=== PATIENT | male | born 1990 | race Caucasian/White ===

== ENCOUNTER 2017-10-08 16:17 | Emergency (ER) | payer BC ==
[2017-10-08 16:44] VITALS: BP 152/87
--- NOTE | 2017-10-08 17:13 | UC ---
Throat Pain/Nasal Keshawn HPI - HPI Summary HPI Summary: pt c/o nasal congestion, cough and sinus pressure X 1 week. pt also has concern for STD exposure. Pt's was told by previous partner tested positive for gonorrhea. Denies dysuria, or penile discharge. - History of Current Complaint Chief Complaint: UCRespiratory Stated Complaint: CONGESTION HEADACHE FATIGUE Time Seen by Provider: 10/08/17 16:32 Hx Obtained From: Patient Onset/Duration: Gradual Onset, Lasting Days, Still Present, Worse Since - onset Severity: Mild Cough: Nonproductive Associated Signs & Symptoms: Positive: Sinus Discomfort - Epiglottits Risk Factors Epiglottis Risk Factors: Negative - Allergies/Home Medications Allergies/Adverse Reactions: Allergies Allergy/AdvReac Type Severity Reaction Status Date / Time Codeine Allergy Rash Verified 10/08/17 16:34 Penicillins Allergy Rash Verified 10/08/17 16:34 Home Medications: Home Medications amLODIPine TAB* [Norvasc 5 mg TAB*] 1 tab DAILY 10/08/17 [History Confirmed 05/18] PMH/Surg Hx/FS Hx/Imm Hx Previously Healthy: No Cardiovascular History: Hypertension - Surgical History Surgical History: None - Family History Known Family History: Positive: Cardiac Disease - Social History Occupation: Employed Full-time Lives: With Family Alcohol Use: Occasionally Substance Use Type: None Smoking Status (MU): Never Smoked Tobacco Have You Smoked in the Last Year: No - Immunization History Most Recent Influenza Vaccination: no Vaccination Up to Date: No Review of Systems Constitutional: Fatigue Skin: Negative Eyes: Negative ENT: Sinus Congestion, Sinus Pain/Tenderness Respiratory: Cough Cardiovascular: Negative Gastrointestinal: Negative Genitourinary: Negative Motor: Negative Neurovascular: Negative Musculoskeletal: Negative Neurological: Negative Psychological: Negative Is Patient Immunocompromised?: No All Other Systems Reviewed And Are Negative: Yes Physical Exam Triage Information Reviewed: Yes Appearance: Well-Appearing Vital Signs: Initial Vital Signs Temp 98.9 F 10/08/17 16:35 Pulse 90 10/08/17 16:35 Resp 16 10/08/17 16:35 BP 152/87 10/08/17 16:35 Pulse Ox 100 10/08/17 16:35 Vital Signs Reviewed: Yes Eye Exam: Normal ENT Exam: Other ENT: Positive: Nasal congestion, Sinus tenderness Dental Exam: Normal Neck exam: Normal Respiratory Exam: Normal Cardiovascular Exam: Other - irregular rhythm, pt states that he had EKG in March 2017. sees automotive parts counter person regularly and denies chest pain Abdominal Exam: Normal Musculoskeletal Exam: Normal Neurological Exam: Normal Psychological Exam: Normal Skin Exam: Normal Throat Pain/Nasal Course/Dx - Differential Dx/Diagnosis Differential Diagnosis/HQI/PQRI: Sinusitis, Other - STD exposure, elevated blood pressure Provider Diagnoses: Sinusitis. elevated blood pressure. STD exposure. Regular , Irregular rhythm Discharge - Discharge Plan Condition: Stable Disposition: HOME Prescriptions: DOXYcycline CAP(*) [DOXYcycline 100MG CAP(*)] 100 mg PO Q12H #14 cap Patient Education Materials: Sexually Transmitted Diseases (ED), Sinusitis (ED) , Hypertension (ED) Referrals: Manish Mays DO [Doctor of Osteopathy] - If Needed No Primary Care Phys,NOPCP [Primary Care Provider] - If Needed Additional Instructions: Please follow up with your PCP as needed. Please note that your blood pressure was elevated at today's visit. Please follow up with your automotive parts counter person regarding today's finding. Please call the urgent care in one week if you have not heard from us before that.
== END 2017-10-08 17:18 | disposition home or self-care (01) ==
LOC: UCCORT 16:17
DX: J32.9 Chronic sinusitis, unspecified (principal); R53.83 Other fatigue; Z20.2 Contact with and (suspected) exposure to infections with a predominantly sexual mode of transmission; I49.9 Cardiac arrhythmia, unspecified; I10 Essential (primary) hypertension; Z88.5 Allergy status to narcotic agent; Z88.0 Allergy status to penicillin
CPT/HCPCS: 87491; 87591; 99202; G0463

== ENCOUNTER 2018-10-07 17:02 | Emergency (ER) | payer BC ==
--- OUTSIDE RECORDS SUMMARY | 2018-10-07 17:15 | XMS REPORT | Continuity of Care Document ---
:1990 Author Organization [facility] Support Name Relationship Address Phone ALVIN MENDOZA [address] [place] [address] [place] [address] ALVIN MENDOZA mother [address] [place] [address] [place] [address] Allergies and Intolerances Code Code System Allergy Type Reaction Severity Start End Date Status Substance Date 2670 RXNorm Codeine Drug Mild Active allergy 6 (disorder) 54856 RXNorm penicillin Drug Mild Active allergy 6 (disorder) Medications RxNorm Medication Dose Route Instructions Start Date End Date Status 96001 Loratadine 10 mg oral orally every day as needed. Active 05260 valsartan 160 mg oral orally every day Active Problems Code Code System Problem Name Start Date End Date Status 76867401 SNOMED-CT Essential hypertension U Active Procedures No data in the system Results Radiology Results Order: SPINE LUMBAR PARTIALExam Completion Date:09/04/2018 23:3512 12:09 AM SPINE LUMBAR PARTIAL ORDERING CLINICAL INFORMATION: LOW BACK PAIN,Injury.2 view, AP, LAT #1 -- LOW BACK PAIN ADDITIONAL CLINICAL INFORMATION: None. COMPARISON: None. TECHNIQUE: AP and lateral views of the lumbar spine. Spot lateral view of the lumbosacral junction. IMPRESSION AND FINDINGS: Vertebral bodies are grossly maintained in height. No fractures or osseous destructive lesions are identified. Vertebral body alignment appears within normal limits without evidence of significant subluxation. Intervertebral disc height appears grossly maintained. Regional soft tissues and incidentally visualized portions of the sacrum and pelvis appear grossly intact and unremarkable. [facility] submits Rad[facility] and [facility] then provides those same results to [facility]. All results are available to [facility] and [facility] provider portal users. [facility] DICOM images are available to the [facility] provider portal users only. [facility] DICOM images are not available to the [facility] provider portal users. There is no current [facility] cross-RHIO functionality allowing images to be available through the [facility] to RHIO connectivity. Electronically signed By: Robert Cornell M.D. Read By: ROBERT CORNELL Date: 09/05/2018 01:00 Social History Code Code System Social History Observation Description Dates Observed 636807527 SNOMED CT Current Smoking Status Never smoker UNK AdministrativeGender Sex Assigned At Unknown Vital Signs Code Code System Vitals Value Date 8310-5 LOINC Body Temperature 97.8 [degF] 09/04/2018 8865-8 LOINC Pulse Rate 91 {beats}/min 09/04/2018 9279-1 LOINC Respiratory Rate 16 /min 09/04/2018 17580-7 LOINC O2% BldC Oximetry 98 % 09/04/2018 8480-6 LOINC BP Systolic 162 mm[Hg] 09/04/2018 8462-4 LOINC BP Diastolic 103 mm[Hg] 09/04/2018 8302-2 LOINC Height 72 [in_i] 09/04/2018 13268-5 LOINC Weight 92 kg 09/04/2018 3140-1 LOINC Body surface area Derived from formula 2.14 m2 09/04/2018 49525-8 LOINC BMI (Body Mass Index) 27.7 kg/m2 09/04/2018 Goals Section No data in the system Health Concerns No data in the systemEncounter Diagnosis Date Code Code System Diagnosis Status S39.012A ICD10 STRAIN MUSC FASC TENDON LW BACK INT Active Advance Directives HEALTH CARE PROXY Directive Type Effective Date Zanjero Notes Supporting Document Name Address Phone No Directive 01/24/2018 Not Specified Not Specified Not Specified Francheska Mendoza No Type specified 12:34:00 PM TEL: [phone] PT STATES NO ADVANCE DIRECTIVES Directive Type Effective Date Zanjero Notes Supporting Document Name Address Phone No Directive Type 02/01/2016 11:17:39 Not Specified Not Specified Not Specified None No specified AM Family History No data in the system Functional Status Code Functional Condition Code System Date Status Independent adls SNOMED CT 09/04/2018 Active Appears well nourished/hydrated SNOMED CT 09/04/2018 Active Immunizations No data in the system Medical Equipment No data in the system Mental Status Code Cognitive Condition Code System Date Status Mild distress SNOMED CT 09/04/2018 Active Oriented x [address] 09/04/[address] 09/04/2018 Active Assessment and Plan Assessments No data in the systemPlan Of Treatment No data in the systemPending Tests No data in the system Hospital Discharge Instructions No data in the system Reason for Visit Reason for Visit Lower Back Pain
[2018-10-07 17:38] VITALS: BP 138/78
--- NOTE | 2018-10-07 18:31 | UC ---
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 Pt states was diagnosis with sinusitis. Pt was Rx doxy. Pt states starting yesterday felt much worse. Fever, rigors, cough. Pt states he has body aches, nausea No rash Pt with similar sick contact as work. Pt states 'everything aches" Pt's medications reviewed this visit not immunocompromised - History of Current Complaint Chief Complaint: UCGeneralIllness Stated Complaint: SINUS CONCERN Time Seen by Provider: 10/07/18 18:24 Hx Obtained From: Patient Pain Intensity: 8 - Allergies/Home Medications Allergies/Adverse Reactions: Allergies Allergy/AdvReac Type Severity Reaction Status Date / Time codeine Allergy Rash Verified 10/07/18 17:29 Penicillins Allergy Rash Verified 10/07/18 17:29 Home Medications: Home Medications Amlodipine Besylate [Norvasc] 10 mg PO DAILY 10/07/18 [History Confirmed ] PMH/Surg Hx/FS Hx/Imm Hx Previously Healthy: Yes - Surgical History Surgical History: Yes Surgery Procedure, Year, and Place: adenoidectomy - Family History Known Family History: Positive: Cardiac Disease, Non-Contributory - Social History Occupation: Employed Full-time Lives: With Family Alcohol Use: Occasionally Substance Use Type: None Smoking Status (MU): Never Smoked Tobacco Have You Smoked in the Last Year: No - Immunization History Most Recent Influenza Vaccination: no Vaccination Up to Date: No Review of Systems All Other Systems Reviewed And Are Negative: Yes Constitutional: Positive: Fever, Chills, Fatigue ENT: Positive: Sore Throat, Sinus Congestion Respiratory: Positive: Cough Cardiovascular: Positive: Negative Musculoskeletal: Positive: Myalgia Physical Exam - Summary Physical Exam Summary: Vital Signs Reviewed: Yes A+Ox3, no distress, tired appearing Eyes: Conjunctiva Clear, NIC. EOM intact and full ENT: Hearing grossly normal TM x 2 clear, turbinates inflammed, + PND mmoist, uvula midline, no exudate, no erythema Neck: Positive: Supple Respiratory: Positive: No respiratory distress, No accessory muscle use + coarse cough, scattered wheeze Cardiovascular: RRR nl s1, s2 no m/r CBT <2 sec abd soft + BS nt/nd no guarding, no distension Musculoskeletal Exam: SOLOMON x 4 without difficulty Strength Intact, ROM Intact Neurological: Positive: Alert, + sensation throughout Psychological: Positive: Normal Response To Family Skin: Positive: no rash, no ecchymosis Triage Information Reviewed: Yes Vital Signs: Initial Vital Signs Temp 99.5 F 10/07/18 17:32 Pulse 105 10/07/18 17:32 Resp 22 10/07/18 17:32 BP 138/78 10/07/18 17:32 Pulse Ox 97 10/07/18 17:32 Diagnostics - Radiology No standard instances Radiology Interpretation Completed By: ED Physician - LLL infiltrate Re-Evaluation - Re-Evaluation First Eval Change: Improved - Pt improved following neb reviewed CXR complete Doxy will give spacer tamiflu hydrate secretion percaution work note hydrate motrin/apap Throat Pain/Nasal Course/Dx - Course Assessment/Plan: Pt on Day #6 doxy for sinusitis. Pt has albuteril no MDI Pt states yesterday developed body aches, rigors, cough and myalgias. On exam, pt with fever. tored appearing but appropriate. cough and wheeze. Will check cxr , neb. reassess - Differential Dx/Diagnosis Provider Diagnosis: Cough, Influenza, LLL pneumonia Discharge - Sign-Out/Discharge Documenting (check all that apply): Patient Departure All imaging exams completed and their final reports reviewed: No - Discharge Plan Condition: Stable Disposition: HOME Prescriptions: Albuterol HFA INHALER* [Ventolin HFA Inhaler*] 1 puff INH Q4H PRN #1 mdi PRN Reason: wheeze DOXYcycline CAP(*) [DOXYcycline 100MG CAP(*)] 100 mg PO BID #6 cap Oseltamivir CAP* [Tamiflu CAP*] 75 mg PO BID #10 cap Oseltamivir SUSP 75 MG dose* [Tamiflu SUSP 75 MG dose*] 75 mg PO BID #10 oral.syrin predniSONE TAB* [Deltasone 20 MG TAB*] 20 mg PO DAILY #11 tab Patient Education Materials: Influenza (ED) Forms: *Gen. Provider Communication, *Work Release Referrals: [facility] [place] PH[facility]ICIAN REFERRAL [Outside] No Primary Care Phys,NOPCP [Primary Care Provider] - Additional Instructions: - Stay well hydrated. Drink plenty of non-alcoholic, non-caffinated beverages. - Alternate ibuprofen (Advil, Motrin) 600mg and Tylenol (acetaminophen) 1000mg every 3 hours for pain or fever. Take with food. Do NOT take for more than 4-5 days. - These infections are spread by secretions - do NOT share eating or drinking utensils - clean items you share with other people such as cell phones, computer mouse, TV remote, computer tablets,etc. Once you start to feel better, change your toothbrush and your pillowcase. - get plenty of restful sleep - humidify the air in the room where you sleep - boil water, run a hot steam shower, vaporizer, cups of water by heat register - okay to take over the counter decongestant and cough medication - The doctor that reviewed your chest radiograph is concerned about mild pneumonia - you have taken 7 days of the correct antibiotic - you have been given a prescription for 3 more days to complete the theraputic course. The radiologist will read your xray tomorrow. If there is a change to your radiology read you will receive a call from a care produce team lead - Take Tamiflu as prescribed until gone -Use your inhaler - 2 puffs every 4 hours and Sunday then every 4 hours as needed - use your aerochamber as given to you here today - Take prednisone exactly as prescribed until gone - contact your doctor or return with questions or concerns - Billing Disposition and Condition Condition: STABLE Disposition: Home
[2018-10-07] MEDS ORDERED: Acetaminophen TAB* 325 MG PO ONE (18:37)
[2018-10-07] MEDS ORDERED: Albuterol/Ipratropium NEB.SOL* Albuterol 2.5 MG/Ipratropium 0.5 MG 3 ML INH ONE (18:37)
--- NOTE | 2018-10-08 08:13 | UC ---
- Progress Note Progress Note: chest xray report : IMPRESSION: SMALL LEFT PERIHILAR INFILTRATE. Course/Dx - Diagnoses Provider Diagnoses: Cough Discharge - Sign-Out/Discharge Documenting (check all that apply): Patient Departure All imaging exams completed and their final reports reviewed: Yes - Discharge Plan Condition: Stable Disposition: HOME Prescriptions: Albuterol HFA INHALER* [Ventolin HFA Inhaler*] 1 puff INH Q4H PRN #1 mdi PRN Reason: wheeze DOXYcycline CAP(*) [DOXYcycline 100MG CAP(*)] 100 mg PO BID #6 cap Oseltamivir CAP* [Tamiflu CAP*] 75 mg PO BID #10 cap Oseltamivir SUSP 75 MG dose* [Tamiflu SUSP 75 MG dose*] 75 mg PO BID #10 oral.syrin predniSONE TAB* [Deltasone 20 MG TAB*] 20 mg PO DAILY #11 tab Patient Education Materials: Influenza (ED) Forms: *Gen. Provider Communication, *Work Release Referrals: [facility] [place] [facility] REFERRAL [Outside] No Primary Care Phys,NOPCP [Primary Care Provider] - Additional Instructions: - Stay well hydrated. Drink plenty of non-alcoholic, non-caffinated beverages. - Alternate ibuprofen (Advil, Motrin) 600mg and Tylenol (acetaminophen) 1000mg every 3 hours for pain or fever. Take with food. Do NOT take for more than 4-5 days. - These infections are spread by secretions - do NOT share eating or drinking utensils - clean items you share with other people such as cell phones, computer mouse, TV remote, computer tablets,etc. Once you start to feel better, change your toothbrush and your pillowcase. - get plenty of restful sleep - humidify the air in the room where you sleep - boil water, run a hot steam shower, vaporizer, cups of water by heat register - okay to take over the counter decongestant and cough medication - The doctor that reviewed your chest radiograph is concerned about mild pneumonia - you have taken 7 days of the correct antibiotic - you have been given a prescription for 3 more days to complete the theraputic course. The radiologist will read your xray tomorrow. If there is a change to your radiology read you will receive a call from a care retail team leader - Take Tamiflu as prescribed until gone -Use your inhaler - 2 puffs every 4 hours and Sunday then every 4 hours as needed - use your aerochamber as given to you here today - Take prednisone exactly as prescribed until gone - contact your doctor or return with questions or concerns - Billing Disposition and Condition Condition: STABLE Disposition: Home
== END 2018-10-07 19:33 | disposition home or self-care (01) ==
LOC: UCCORT 17:02
DX: J11.00 Influenza due to unidentified influenza virus with unspecified type of pneumonia (principal); J32.9 Chronic sinusitis, unspecified; Z88.5 Allergy status to narcotic agent; Z88.0 Allergy status to penicillin
CPT/HCPCS: 71046; 99212; A9270-GY; G0463

== ENCOUNTER 2018-10-16 16:01 | Emergency (ER) | payer BC ==
[2018-10-16 16:24] VITALS: BP 157/89
--- NOTE | 2018-10-16 16:40 | UC ---
Throat Pain/Nasal Keshawn HPI - HPI Summary HPI Summary: 28-year-old male comes in with a chief complaint of rhinorrhea and sinus pressure. Patient started feeling ill 3 weeks ago. He is allergic to penicillins and was started on doxycycline. He continued to get more ill and was then diagnosed with influenza and started on Tamiflu. Also having a lot of wheezing and his been using an albuterol inhaler and was also prescribed prednisone. The breathing is greatly improved. He continues to use the albuterol inhaler as needed but does not needed as much. The albuterol does help with the wheezing. The rhinorrhea during the course of the illness improved. As soon as he stopped the antibiotic it's gotten worse again. He does use saline nasal spray which helps with the rhinorrhea. - History of Current Complaint Chief Complaint: UCGeneralIllness Stated Complaint: SINUS COMPLAINT Time Seen by Provider: 10/16/18 16:16 Pain Intensity: 0 - Allergies/Home Medications Allergies/Adverse Reactions: Allergies Allergy/AdvReac Type Severity Reaction Status Date / Time codeine Allergy Rash Verified 10/07/18 17:29 Penicillins Allergy Rash Verified 10/07/18 17:29 Home Medications: Home Medications Aspirin 325 mg PO ONCE 10/16/18 [History Confirmed 10/16/18] PMH/Surg Hx/FS Hx/Imm Hx Previously Healthy: Yes Respiratory History: Asthma - Surgical History Surgical History: Yes Surgery Procedure, Year, and Place: adenoidectomy - Family History Known Family History: Positive: Cardiac Disease, Non-Contributory - Social History Alcohol Use: Rare Substance Use Type: None Smoking Status (MU): Never Smoked Tobacco Have You Smoked in the Last Year: No - Immunization History Most Recent Influenza Vaccination: no Vaccination Up to Date: No Review of Systems All Other Systems Reviewed And Are Negative: Yes Constitutional: Positive: Negative Skin: Positive: Negative Eyes: Positive: Negative ENT: Positive: Sore Throat, Nasal Discharge, Sinus Congestion, Sinus Pain/ Tenderness Respiratory: Positive: Other - WHEEZING Cardiovascular: Positive: Negative Gastrointestinal: Positive: Negative Motor: Positive: Negative Neurovascular: Positive: Negative Musculoskeletal: Positive: Negative Neurological: Positive: Negative Psychological: Positive: Negative Is Patient Immunocompromised?: No Physical Exam Triage Information Reviewed: Yes Appearance: No Pain Distress, Well-Nourished, Ill-Appearing - MILD Vital Signs: Initial Vital Signs Temp 98.5 F 10/16/18 16:20 Pulse 98 10/16/18 16:20 Resp 18 10/16/18 16:20 BP 157/89 10/16/18 16:20 Pulse Ox 100 10/16/18 16:20 Vital Signs Reviewed: Yes Eye Exam: Normal Eyes: Positive: Conjunctiva Clear ENT: Positive: Pharyngeal erythema, Nasal congestion, Nasal drainage, TMs normal Neck exam: Normal Neck: Positive: Supple Respiratory: Positive: Lungs clear, Normal breath sounds, No respiratory distress Cardiovascular: Positive: RRR Musculoskeletal Exam: Normal Musculoskeletal: Positive: Strength Intact, ROM Intact Neurological Exam: Normal Neurological: Positive: Alert, Muscle Tone Normal Psychological Exam: Normal Psychological: Positive: Age Appropriate Behavior Skin Exam: Normal Throat Pain/Nasal Course/Dx - Course Course Of Treatment: With the patient's allergy to penicillin with the patient' s allergy to penicillin we'll retreat with a 10 day course of doxycycline he is to continue symptomatic treatment. Follow-up with primary care doctor or return here if worse or not improving. - Differential Dx/Diagnosis Provider Diagnosis: Sinusitis, Bronchospasm Discharge - Sign-Out/Discharge Documenting (check all that apply): Patient Departure All imaging exams completed and their final reports reviewed: No Studies - Discharge Plan Condition: Stable Disposition: HOME Prescriptions: Albuterol HFA INHALER* [Ventolin HFA Inhaler*] 1 puff INH Q4H PRN #1 mdi PRN Reason: Wheezing DOXYcycline CAP(*) [DOXYcycline 100MG CAP(*)] 100 mg PO BID #20 cap Patient Education Materials: Sinusitis (ED), Bronchospasm (ED) Referrals: [facility] [place] [facility]IAN REFERRAL [Outside] Additional Instructions: FOLLOW UP WITH YOUR DOCTOR IF NOT COMPLETELY IMPROVED. GET RECHECKED FOR ANY WORSENING OF YOUR CONDITION OR QUESTIONS OR CONCERNS. - Billing Disposition and Condition Condition: STABLE Disposition: Home
== END 2018-10-16 16:52 | disposition home or self-care (01) ==
LOC: UCCORT 16:01
DX: J32.9 Chronic sinusitis, unspecified (principal); J98.01 Acute bronchospasm; Z88.0 Allergy status to penicillin; Z88.5 Allergy status to narcotic agent
CPT/HCPCS: 99212; G0463

== ENCOUNTER 2018-12-23 12:42 | Emergency (ER) | payer BC ==
--- OUTSIDE RECORDS SUMMARY | 2018-12-23 12:51 | XMS REPORT | Continuity of Care Document ---
:1990 External Reference #:[id number] Author Name Gloria Pimentel C Care Team Providers Name Role Phone ALESSANDRO Woodard Vijaya Care Team Information Notch Grinder Unavailable ALESSANDRO Woodard Vijaya Primary Care Physician Unavailable Payers Date Identification Numbers Payment Provider Subscriber Policy Number: [id number] [facility] Plan Blue Mendoza PayID: [id number] [address] [place] [address] Advance Directives Description No Information Available Problems Date Description Provider Status Onset: 09/21/2016 Generalized anxiety disorder Manish Mays DO Active Onset: 02/16/2016 Essential hypertension Manish Mays DO Active Family History Date Family Member(s) Observation Comments Father Non Contributory Mother Non Contributory Paternal Grandmother Hypertension Paternal Grandmother Stroke Maternal Grandmother Hypertension Social History Type Date Description Comments Sex Unknown Marital Status Single Lives With Alone Occupation Game Programer ETOH Use Occasionally consumes alcohol Tobacco Use Start: Unknown Patient has never smoked (cigarettes) Tobacco Use Start: Unknown Chewing tobacco Quit 02/02/16, Smokes a cigar 1-2x/month Smoking Status Reviewed: 11/29/18 Chewing tobacco Quit 02/02/16, Smokes a cigar 1-2x/month Exercise Exercises regularly walks, runs Type/Frequency Allergies, Adverse Reactions, Alerts Date Description Reaction Status Severity Comments 02/16/2016 Penicillin Active 02/16/2016 Codeine Active Medications Medication Date Status Form Strength Qnty SIG Indications Ordering Provider Norvasc 02/14/2018 Active Tablets 10mg 90tabs 1 by Trell mouth Charlamb, every MD day Claritin-D 12 Active Tablets ER 5-120mg prn Unknown Hour 12HR Valsartan 10/18/2017 Hx Tablets 160mg 30tabs 1 by I10 Davon, - pollo Cancino, 02/13/2018 every DO day Norvasc Hx Tablets 5mg 1 by Davon - pollo Cancino, 10/18/2017 every DO day Xanax Hx Tablets 0.25mg prn Unknown - Unknown Norvasc Hx Tablets 10mg 1 by Unknown - mouth 02/14/2018 every day Norvasc Hx Tablets 5mg 1 by Unknown - mouth 02/14/2018 every day Immunizations Description No Information Available Vital Signs Date Vital Result Comment 11/29/2018 9:16am BP Systolic Right Arm 132 mmHg BP Diastolic Right Arm 92 mmHg Heart Rate 80 /min Respiratory Rate 20 /min Weight 210.00 lb Height 72 inches 6'0" BMI (Body Mass Index) 28.5 kg/m2 05/10/2018 9:59am BP Systolic Left Arm 138 mmHg BP Diastolic Left Arm 76 mmHg Heart Rate 76 /min Respiratory Rate 12 /min Weight 190.00 lb Height 72 inches 6'0" BMI (Body Mass Index) 25.8 kg/m2 02/14/2018 1:33pm BP Systolic Left Arm 160 mmHg BP Diastolic Left Arm 100 mmHg Heart Rate 64 /min Respiratory Rate 16 /min Weight 190.00 lb Height 72 inches 6'0" BMI (Body Mass Index) 25.8 kg/m2 10/18/2017 3:37pm BP Systolic Left Arm 142 mmHg BP Diastolic Left Arm 90 mmHg Heart Rate 64 /min Respiratory Rate 16 /min Weight 195.00 lb Height 72 inches 6'0" BMI (Body Mass Index) 26.4 kg/m2 06/12/2017 8:47am BP Systolic Left Arm 140 mmHg BP Diastolic Left Arm 90 mmHg Heart Rate 69 /min Respiratory Rate 16 /min Weight 195.00 lb Height 72 inches 6'0" BP Systolic Recheck 132 mmHg BP Diastolic Recheck 84 mmHg BMI (Body Mass Index) 26.4 kg/m2 11/03/2016 2:02pm BP Systolic Left Arm 130 mmHg BP Diastolic Left Arm 84 mmHg Heart Rate 84 /min Respiratory Rate 16 /min Weight 185.00 lb Height 72 inches 6'0" BMI (Body Mass Index) 25.1 kg/m2 09/21/2016 2:20pm BP Systolic Left Arm 140 mmHg BP Diastolic Left Arm 86 mmHg Heart Rate 72 /min Respiratory Rate 16 /min Weight 185.00 lb Height 72 inches 6'0" BMI (Body Mass Index) 25.1 kg/m2 08/18/2016 1:31pm BP Systolic Right Arm 142 mmHg BP Diastolic Right Arm 92 mmHg Heart Rate 107 /min Respiratory Rate 18 /min Weight 185.00 lb Height 72 inches 6'0" BMI (Body Mass Index) 25.1 kg/m2 02/16/2016 2:15pm BP Systolic Right Arm 120 mmHg BP Diastolic Right Arm 86 mmHg Heart Rate 72 /min Respiratory Rate 14 /min Weight 197.00 lb Height 72 inches 6'0" BMI (Body Mass Index) 26.7 kg/m2 Results Description No Information Available Procedures Date Code Description Status 05/10/2018 13308 Electrocardiogram Complete Completed 06/12/2017 93596 Electrocardiogram Complete Completed 08/18/2016 04678 Electrocardiogram Complete Completed 02/03/2016 79892 Stress Test Interpretation & Report Only Completed 02/03/2016 74224 Cardiovascular Stress Test - Tracing Only Completed 02/03/2016 03735 Stress Test - Physician Supervision Only Completed 02/03/2016 15331 Spect, Multiple Perfusion Study Completed 01/31/2016 72507 Echo, transthoracic, complete w/ Doppler and Color Flow Completed Encounters Type Date Location Provider Dx Diagnosis Office Visit 11/29/2018 [facility] Lorena Mays Essential ( primary) 8:40a Of Weinert-Selvin Cancino, DO hypertension Office Visit 05/10/2018 [facility]on I10 Essential ( primary) 10:00a Of Jeanna Cancino, DO hypertension Office Visit 02/14/2018 [facility] I10 Essential ( primary) 1:40p Of Weinert-Selvin Cancino, DO hypertension Office Visit 10/18/2017 [facility] I10 Essential ( primary) 3:40p Of Weinert-Selvin Cancino, DO hypertension Office Visit 06/12/2017 [facility] Erin Simons I10 Essential ( primary) 9:00a Of Weinert-Selvin Rojas RPA-Vishal hypertension Office Visit 11/03/2016 [facility] I10 Essential ( primary) 2:00p Of Weinert-Selvin Cancino, DO hypertension F41.1 Generalized anxiety disorder Office Visit 09/21/2016 [facility] Lorena Essential 1:40p Of Jeanna Cancino DO (primary) hypertension F41.1 Generalized anxiety disorder Office Visit 08/18/2016 [facility] Lorena Mays Essential 1:40p Of Jeanna Cancino DO (primary) hypertension Office Visit 02/16/2016 [facility]on, Lorena Essential 3:00p Of Corrine Cancino DO (primary) hypertension Plan of Treatment 11/29/2018 - Manish Mays, DOI10 Essential (primary) hypertensionFollow up :*follow up in 1 year
[2018-12-23 13:59] VITALS: BP 130/80
--- NOTE | 2018-12-23 14:58 | UC ---
General HPI - HPI Summary HPI Summary: PT C/O BOTH EYES BEING RED, BURNING AND HAVING A GREEN DISCHARGE THIS AM. + NASAL CONGESTION. NO CONTACT USE OF VISUAL DISTURBANCE. - History of Current Complaint Chief Complaint: UCEye Stated Complaint: LT EYE CONCERN Time Seen by Provider: 12/23/18 14:46 Hx Obtained From: Patient Onset/Duration: Gradual Onset Timing: Constant Pain Intensity: 7 Associated Signs & Symptoms: Negative: Fever, Headache - Allergy/Home Medications Allergies/Adverse Reactions: Allergies Allergy/AdvReac Type Severity Reaction Status Date / Time codeine Allergy Rash Verified 12/23/18 13:52 Penicillins Allergy Rash Verified 12/23/18 13:52 Home Medications: Home Medications Aspirin EC TAB* [Ecotrin EC TAB*] 325 mg PO DAILY 12/23/18 [History Confirmed ] PMH/Surg Hx/FS Hx/Imm Hx Previously Healthy: Yes - Surgical History Surgical History: Yes Surgery Procedure, Year, and Place: adenoidectomy - Family History Known Family History: Positive: Cardiac Disease, Non-Contributory - Social History Occupation: Disabled - [employer]PORARY[employer] Alcohol Use: Rare Substance Use Type: None Smoking Status (MU): Never Smoked Tobacco Have You Smoked in the Last Year: No - Immunization History Most Recent Influenza Vaccination: no Vaccination Up to Date: No Review of Systems All Other Systems Reviewed And Are Negative: Yes Eyes: Positive: Drainage, Eye Redness. Negative: Blurred Vision, Diplopia, Photophobia Physical Exam Triage Information Reviewed: Yes Appearance: Well-Appearing Vital Signs: Initial Vital Signs Temp 98.1 F 12/23/18 13:50 Pulse 80 12/23/18 13:50 Resp 18 12/23/18 13:50 BP 130/80 12/23/18 13:50 Pulse Ox 99 12/23/18 13:50 Vital Signs Reviewed: Yes Eyes: Positive: Other: - NO AURICULAR ADENOPATHY. NO PERIORBITAL EDEMA OR ERYTHEMA. CONJUNCTIVA INJECTED X2 WITH GREEN EXUDATE. PERRL, EOMI, AC'S CLEAR. LIDS EVERTED AND NO FB'S. ENT: Positive: Pharynx normal, TMs normal. Negative: Nasal congestion, Nasal drainage Neck: Positive: Supple, Nontender, No Lymphadenopathy Respiratory: Positive: Lungs clear, Normal breath sounds, No respiratory distress Cardiovascular: Positive: RRR, No Murmur Abdomen Description: Positive: Nontender Bowel Sounds: Positive: Present Musculoskeletal: Positive: ROM Intact, Other: - SPLINT RLE Neurological: Positive: Alert Psychological: Positive: Age Appropriate Behavior Skin Exam: Normal Course/Dx - Diagnoses Provider Diagnosis: Conjunctivitis Discharge - Sign-Out/Discharge Documenting (check all that apply): Patient Departure All imaging exams completed and their final reports reviewed: No Studies - Discharge Plan Condition: Stable Disposition: HOME Prescriptions: Erythromycin OPTH OINT* [Erythromycin 0.5% OPTH OINT*] 1 applic BOTH EYES TID 7 Days #1 ophth.oint Patient Education Materials: Conjunctivitis (ED) Referrals: No Primary Care Phys,NOPCP [Primary Care Provider] - DAVID Wolfe [Medical Doctor] - 5 Days - Billing Disposition and Condition Condition: STABLE Disposition: Home
== END 2018-12-23 15:14 | disposition home or self-care (01) ==
LOC: UCCORT 12:42
DX: H10.9 Unspecified conjunctivitis (principal); Z88.5 Allergy status to narcotic agent; Z88.0 Allergy status to penicillin; Z79.82 Long term (current) use of aspirin
CPT/HCPCS: 99212; G0463

== ENCOUNTER 2018-12-26 07:28 | Emergency (ER) | payer BC ==
[2018-12-26 07:57] VITALS: BP 142/83
--- NOTE | 2018-12-26 08:23 | ED ---
Throat Pain/Nasal Congestion - HPI Summary HPI Summary: 28 yr old male with the complaint of sore throat, and bilateral eye irritation. He has had ointment for eye, and they are getting better over the past few days, but he doesn't like putting ointment in his eyes. He wants drop. He has had a sore throat for just a day at this point. No runny nose. No NVD. No fever. No drooling. No other complaints. - History of Current Complaint Chief Complaint: UCGeneralIllness Time Seen by Provider: 12/26/18 07:52 - Allergies/Home Medications Allergies/Adverse Reactions: Allergies Allergy/AdvReac Type Severity Reaction Status Date / Time codeine Allergy Rash Verified 12/26/18 07:49 Penicillins Allergy Rash Verified 12/26/18 07:49 PMH/Surg Hx/FS Hx/Imm Hx Cardiovascular History: Reports: Hx Hypertension - Surgical History Surgery Procedure, Year, and Place: adenoidectomy Infectious Disease History: No Infectious Disease History: Denies: Traveled Outside the [place] in Last 30 Days - Family History Known Family History: Positive: Cardiac Disease, Non-Contributory - Social History Occupation: Employed Full-time Alcohol Use: Rare Substance Use Type: Reports: None Smoking Status (MU): Never Smoked Tobacco Have You Smoked in the Last Year: No Review of Systems Constitutional: Negative Positive: Drainage, Erythema Positive: Sore Throat All Other Systems Reviewed And Are Negative: Yes Physical Exam Triage Information Reviewed: Yes Vital Signs On Initial Exam: Initial Vitals Temp Pulse Resp BP Pulse Ox 98.1 F 83 18 142/83 99 12/26/18 07:55 12/26/18 07:55 12/26/18 07:55 12/26/18 07:55 12/26/18 07:55 Vital Signs Reviewed: Yes Appearance: Positive: Well-Appearing, No Pain Distress Skin: Positive: Warm, Skin Color Reflects Adequate Perfusion Head/Face: Positive: Normal Head/Face Inspection Eyes: Positive: EOMI, Conjunctiva Inflammed. Negative: Discharge ENT: Positive: Pharyngeal erythema, TMs normal. Negative: Nasal congestion, Nasal drainage Neck: Positive: Nontender Respiratory/Lung Sounds: Positive: Clear to Auscultation, Breath Sounds Present Cardiovascular: Positive: RRR. Negative: Murmur Abdomen Description: Positive: Nontender Musculoskeletal: Positive: Strength/ROM Intact Neurological: Positive: Sensory/Motor Intact, Alert, Oriented to Person Place, Time, CN Intact II-III Psychiatric: Positive: Normal Diagnostics - Vital Signs Vital Signs Temp Pulse Resp BP Pulse Ox 12/26/18 07:55 98.1 F 83 18 142/83 99 - Laboratory Lab Results: Lab Results 12/26/18 Range/Units 07:53 Group A Strep Rapid Negative (Negative) Lab Statement: Any lab studies that have been ordered have been reviewed, and results considered in the medical decision making process. EENT Course/Dx - Course Course Of Treatment: 28 yr old with URI, conjunctivitis. Rx sulfa. Rapid strep neg. - Diagnoses Provider Diagnoses: Conjunctivitis, Pharyngitis, Hypertension Discharge - Sign-Out/Discharge Documenting (check all that apply): Patient Departure All imaging exams completed and their final reports reviewed: No Studies - Discharge Plan Condition: Good Disposition: HOME Prescriptions: Sulfacetamide 10 % OPTH.BOLA* [Sulamyd 10% Opth*] 1 drop BOTH EYES Q4H #1 btl Patient Education Materials: Hypertension (ED), Conjunctivitis (ED) Referrals: [facility] [Outside] - 2 Days No Primary Care Phys,NOPCP [Primary Care Provider] - - Billing Disposition and Condition Condition: GOOD Disposition: Home
== END 2018-12-26 08:20 | disposition home or self-care (01) ==
LOC: UCCORT 07:28
DX: J02.9 Acute pharyngitis, unspecified (principal); H10.9 Unspecified conjunctivitis; I10 Essential (primary) hypertension; Z88.5 Allergy status to narcotic agent; Z88.0 Allergy status to penicillin
CPT/HCPCS: 87651; 99212; G0463

== ENCOUNTER 2019-12-11 14:57 | Emergency (ER) | payer BC, OTHER ==
[2019-12-11 15:14] VITALS: BP 149/82
--- OUTSIDE RECORDS SUMMARY | 2019-12-11 15:35 | XMS REPORT | Continuity of Care Document ---
:1990 External Reference #:[id number] Author Name Kings Porter MD Address [address] [place] [address] Care Team Providers Name Role Phone Mark Anthony Nelson MD - Ophthalmology Care Team Information Assistant Plant Control Operator Blake Portillo MD - Family Medicine Care Team Information Assistant Plant Control Operator Problems Active Problems Provider Date Essential hypertension Blake Portillo MD Onset: 04/23/2019 Dyspnea Wolfgang Gramajo M.D., [facility] Onset: 10/27/2019 Palpitations Wolfgang Gramajo M.D., [facility] Onset: 10/27/2019 Chest pain Wolfgang Gramajo M.D., [facility] Onset: 10/27/2019 Inactive Problems Atherosclerosis of bypass graft of Wolfgang Gramajo M.D., [facility] Onset: limb Inactive: 10/27/2019 Social History Type Date Description Comments Sex Unknown Tobacco Use Start: Unknown Never Smoked Cigarettes Smoking Status Reviewed: 10/27/19 Never Smoked Cigarettes ETOH Use Occasionally consumes alcohol Tobacco Use Start: Unknown Patient has never smoked Allergies, Adverse Reactions, Alerts Active Allergies Reaction Severity Comments Date Penicillin Hives 12/27/2018 Codeine Hives 12/27/2018 Medications Active Medications SIG Qnty Indications Ordering Provider Date Chlorthalidone 1/2 tab by 30tabs I10 Blake Portillo MD 10/06/2019 25mg Tablets mouth every day Valsartan TK 1 T PO qd Unknown 80mg Tablets Amlodipine Besylate 1 by mouth Unknown 5mg every day Tablets Zyrtec Allergy 1 tab at night Unknown 10mg Tablets as needed History Medications Omeprazole 1 by mouth once 30caps Blake Portillo MD 06/12/2019 - 20mg a day 09/29/[address] Famotidine 1 tab by mouth 60tabs Blake Portillo MD 05/29/2019 - 20mg Tablets twice a day 06/12/2019 Famotidine 1 tab by mouth 60tabs K21.9 Blake Portillo MD 05/19/2019 - 20mg Tablets twice a day 05/29/2019 Immunizations Description No Information Available Vital Signs Date Vital Result Comment 10/27/2019 9:47am BP Systolic Sitting Left Arm 142 mmHg BP Diastolic Sitting Left Arm 86 mmHg Heart Rate 73 /min Respiratory Rate 16 /min Height 72 inches 6'0" Weight 215.00 lb BMI (Body Mass Index) 29.2 kg/m2 BSA (Body Surface Area) 2.20 m2 [place] body weight in kilograms 81 kg O2 Saturation Level with Exercise 96 % 10/06/2019 9:47am BP Systolic 148 mmHg BP Diastolic 90 mmHg Body Temperature 98.6 F Heart Rate 85 /min Respiratory Rate 16 /min Height 72 inches 6'0" Weight 222.00 lb BMI (Body Mass Index) 30.1 kg/m2 BSA (Body Surface Area) 2.23 m2 [place] body weight in kilograms 81 kg O2 % BldC Oximetry 97 % Results Test Acquired Date Facility Test Result H/L Range Note Testosterone,F 10/06/[address] Testosterone, 807 ng/dL 264- 916 1, 2 ree/Weakly [address] [facility] Serum Bound [place], [place] [id number] [phone] Testosterone,%Free/Weakly BND 52.4 % High 9.0-46.0 3 Testosterone,Free Weakly Bound 422.9 ng/dL Abnormal 40.0-250.0 4 TSH Reflex 10/06/[address] Thyroid Stim 1.43 uIU/mL Normal 0.30-4.20 FT4 And/Or 40[address] [facility] Hormone FT3 [place], [place] [id number] [phone] Reflex add FT3? Y Reflex add FT4? Y 1 T38.7X5A R00.2 2 Adult male reference interval is based on a population of healthy nonobese males (BMI <30) between 19 and 39 years old. tiff Barlow.al. JCEM 2017,102;9051-3925. PMID: 19104364. 3 This test was developed and its performance characteristics determined by [employer]. It has not been cleared or approved by the Food and Drug Administration. 4 Performed at: - [facility] [id number] Woodworking Shop Laborer: Anitra Shipley MD, Phone: [phone] Performed at: - [facility] [id number] Woodworking Shop Laborer: Gladys Baca MD, Phone: [phone] Procedures Date Code Description Status 10/27/2019 78080 EKG-Tracing And Report Completed 09/29/2019 17715 EKG-Tracing And Report Completed Medical Devices Description No Information Available Encounters Type Date Location Provider Dx Diagnosis Office Visit 10/06/2019 9:30a Family Medicine Blake Hamm MD R00.[address] I10 Essential (primary) hypertension R91.8 Other nonspecific abnormal finding of lung field T38.7x5A Adverse effect of androgens and anabolic congeners, init Office Visit 09/29/2019 7:45a Family Medicine Nikki Marcano, I10 Essential (primary) [address] PA hypertension R07.9 Chest pain, unspecified Office Visit 05/19/2019 8:30a Blake Padilla, K21.9 Gastro-esophageal Medicine Niels NICHOLSON reflux disease without RD esophagitis Assessments Date Code Description Provider 10/27/2019 I10 Essential (primary) hypertension Kings Porter MD 10/27/2019 R06.02 Shortness of breath Wolfgang Gramajo M.D., [facility] 10/27/2019 R07.9 Chest pain, unspecified Kings Porter MD 10/27/2019 R00.2 Palpitations Wolfgang Gramajo M.D., [facility] 10/27/2019 R00.2 Palpitations Kings Porter MD 10/27/2019 I70.321 Atherosclerosis of unspecified type Wolfgang Gramajo M.D., of bypass graft(s) of the [facility] extremities with rest pain, right leg 10/27/2019 R07.9 Chest pain, unspecified Wolfgang Gramajo M.D., [facility] 10/06/2019 R00.2 Palpitations Blake Portillo MD 10/06/2019 I10 Essential (primary) hypertension Blake Portillo MD 10/06/2019 R91.8 Other nonspecific abnormal finding Blake Portillo MD of lung field 10/06/2019 T38.7x5A Adverse effect of androgens and Blake Portillo MD anabolic congeners, initial encounter 09/29/2019 I10 Essential (primary) hypertension Nikki Marcano PA 09/29/2019 R07.9 Chest pain, unspecified Nikki Marcano PA 05/19/2019 K21.9 Gastro-esophageal reflux disease Blake Portillo MD without esophagitis Plan of Treatment Future Appointment(s):02/09/2020 9:40 am - Kings Porter MD at Cardiology [facility]3710/27/2019 - Kings Porter MDI10 Essential (primary) hypertensionComments :At age 25, Mr. Mendoza experienced "head rushing" and was found to have markedly elevated blood pressure (he believes initial sBP was 240 mm Hg). He was started on anti-hypertensive medications and he adjusted his lifestyle, particularly his diet which was high in sodium. He's been followed by a bindery operator in [place], Dr. Mays. BP has been controlled with 3 medications, most recently low dose chlorthalidone was prescribed. The dose of amlodipine was reduced due to ankle edema. Testosterone supplements were stopped. He checks his BP at home regularly, and BP has been about 140/85 mm Hg.BP today in the clinic was 132/90 in the left arm and 130/90 in the right arm. He denies claudication symptoms and there are 2+ femoral pulses bilaterally, without bruit. Lab evaluation shows normal TSH and normal creatinine and estimated GFR. TTE on 10/23/19 (read by me) shows a mildly dilated and mildly hypertrophied left ventricle with low-normal systolic function (EF 50-55%), normal RV size/function, and no valve disease. Severe hypertension at a young age raises suspicion for a secondarycause, though none has been found to date. It is unclear what prior w/u has already been done. Mr. Mendoza thinks he underwent assessment for hyperaldosterone states and pheochromocytoma, but isn't sure. Today, I'll order CTA of the renal arteries to assess for STEPHANIE. Low suspicion for aortic coarctation based on history and physical exam findings. In the interim, he'll continue to check his BP dailyat home, aiming for target of 130/80 mm Hg.R07.9 Chest pain, unspecifiedComments:Atypical for angina pectoris. Mr. Mendoza told me that Dr. Mays performed an exercise stress test in the past, which was unremarkable.R00.2 PalpitationsComments:Rare episodes of mild palpitations, will observe for now. If symptoms become more frequent or more severe, we'll proceed with rhythm monitoring. Functional Status Functional Condition Comment Date Status Independent with all ADL's Active Mental Status Description No Information Available Referrals Refer to Reason for Referral Status Appt Date Kings Porter MD 29M palpitation, HTN, using testosterone Scheduled 2019 supplement [address] [place] [address] [phone]
--- OUTSIDE RECORDS SUMMARY | 2019-12-11 15:35 | XMS REPORT | Continuity of Care Document ---
:1990 External Reference #:[id number] Author Name Mark Anthony Nelson MD (transmitted by agent of provider Carrie Ortiz) Address [address] [place] [id number] Care Team Providers Name Role Phone Mark Anthony Nelson MD - Ophthalmology Care Team Information Archeology Faculty Member Blake Portillo MD - Family Medicine Care Team Information Archeology Faculty Member Problems Active Problems Provider Date Essential hypertension Blake Portillo MD Onset: 04/23/2019 Dyspnea Wolfgang Gramajo M.D., [facility] Onset: 10/27/2019 Palpitations Wolfgang Gramajo M.D., [facility] Onset: 10/27/2019 Chest pain Wolfgang Gramajo M.D., [facility] Onset: 10/27/2019 Inactive Problems Atherosclerosis of bypass graft of Wolfgang Gramajo M.D., [facility] Onset: limb Inactive: 10/27/2019 Social History Type Date Description Comments Sex Unknown Tobacco Use Start: Unknown Never Smoked Cigarettes Smoking Status Reviewed: 11/28/19 Never Smoked Cigarettes ETOH Use Occasionally consumes alcohol Tobacco Use Start: Unknown Patient has never smoked Allergies, Adverse Reactions, Alerts Active Allergies Reaction Severity Comments Date Penicillin Hives 12/27/2018 Codeine Hives 12/27/2018 Medications Active Medications SIG Qnty Indications Ordering Date Provider Clotrimazole apply to 30gm B35.3 Evie Wolfe 11/17/2019 1% Cream affected area [employer] twice a day for 2-4 weeks Valsartan 2 by mouth every 180tabs Wolfgang Gramajo 11/11/2019 80mg Tablets day M., M.D., [facility] Chlorthalidone 1/2 tab by mouth 45tabs I10 Wolfgang Gramajo 10/06/2019 25mg every day Martha Torres, FACC Tablets Amlodipine Besylate 1 by mouth every 90tabs Wolfgang Gramajo 5mg day Martha Torres, FACC Tablets Zyrtec Allergy 1 tab at night Unknown 10mg as needed Tablets History Medications Valsartan 1 by mouth 90tabs Wolfgang Gramajo, 11/10/2019 - Unknown 160mg Tablets every day M.DJuan M, FACC Omeprazole 1 by mouth once 30caps Blake Portillo MD 06/12/2019 - 20mg a day 09/29/[address] Frances Description No Information Available Vital Signs Date Vital Result Comment 10/27/2019 9:47am BP Systolic Sitting Left Arm 142 mmHg BP Diastolic Sitting Left Arm 86 mmHg Heart Rate 73 /min Respiratory Rate 16 /min Height 72 inches 6'0" Weight 215.00 lb BMI (Body Mass Index) 29.2 kg/m2 BSA (Body Surface Area) 2.20 m2 [place] body weight in kilograms 81 kg O2 Saturation Level with Exercise 96 % 10/06/2019 9:47am BP Systolic 148 mmHg BP Diastolic 90 mmHg Body Temperature 98.6 F Heart Rate 85 /min Respiratory Rate 16 /min Height 72 inches 6'0" Weight 222.00 lb BMI (Body Mass Index) 30.1 kg/m2 BSA (Body Surface Area) 2.23 m2 [place] body weight in kilograms 81 kg O2 % BldC Oximetry 97 % Results Test Acquired Date Facility Test Result H/L Range Note Testosterone,F 10/06/[address] Testosterone, 807 ng/dL 264- 916 1, 2 ree/Weakly [address] [place] [address] [phone] Testosterone,%Free/Weakly BND 52.4 % High 9.0-46.0 3 Testosterone,Free Weakly Bound 422.9 ng/dL Abnormal 40.0-250.0 4 TSH Reflex 10/06/[address] Thyroid Stim 1.43 uIU/mL Normal 0.30-4.20 FT4 And/Or [address] Hormone FT3 [place] [address] [phone] Reflex add FT3? Y Reflex add FT4? Y 1 T38.7X5A R00.2 2 Adult male reference interval is based on a population of healthy nonobese males (BMI <30) between 19 and 39 years old. tiff Barlow.al. JCEM 2017,102;9848-2277. PMID: 42665048. 3 This test was developed and its performance characteristics determined by [facility]. It has not been cleared or approved by the Food and Drug Administration. 4 Performed at: - [address] [id number] Forging Operator: Anitra Shipley MD, Phone: [phone] Performed at: - [facility] [id number] Forging Operator: Gladys Baca MD, Phone: [phone] Procedures Date Code Description Status 10/27/2019 32035 EKG-Tracing And Report Completed 10/23/2019 11407 Echocardiogram Complete Completed 09/29/2019 00543 EKG-Tracing And Report Completed Medical Devices Description No Information Available Encounters Type Date Location Provider Dx Diagnosis Office Visit 10/27/2019 Cardiology Office Kings Porter MD I10 Essential (primary) 9:00a hypertension R07.9 Chest pain, unspecified R00.2 Palpitations Office Visit 10/06/2019 9:30a Family Medicine Blake Portillo MD R00.[address] I10 Essential (primary) hypertension R91.8 Other nonspecific abnormal finding of lung field T38.7x5A Adverse effect of androgens and anabolic congeners, init Office Visit 09/29/2019 7:45a Family Medicine Nikki Marcano, I10 Essential (primary) [address] PA hypertension R07.9 Chest pain, unspecified Assessments Date Code Description Provider 12/05/2019 H04.123 Dry eye syndrome of bilateral Mark Anthony Nelson MD lacrimal glands 10/27/2019 I10 Essential (primary) hypertension Kings Porter MD 10/27/2019 R06.02 Shortness of breath Wolfgang Gramajo M.D., [facility] 10/27/2019 R07.9 Chest pain, unspecified Kings Porter MD 10/27/2019 R00.2 Palpitations Wolfgang Gramajo M.D., [facility] 10/27/2019 R00.2 Palpitations Kings Porter MD 10/27/2019 I70.321 Atherosclerosis of unspecified type Wolfgang Gramajo M.D., of bypass graft(s) of the [facility] extremities with rest pain, right leg 10/27/2019 R07.9 Chest pain, unspecified Wolfgang Gramajo M.D., [facility] 10/23/2019 R00.2 Palpitations Kings Porter MD 10/06/2019 R00.2 Palpitations Blake Portillo MD 10/06/2019 I10 Essential (primary) hypertension Blake Portillo MD 10/06/2019 R91.8 Other nonspecific abnormal finding Blake Portillo MD of lung field 10/06/2019 T38.7x5A Adverse effect of androgens and Blake Portillo MD anabolic congeners, initial encounter 09/29/2019 I10 Essential (primary) hypertension Nikki Marcano PA 09/29/2019 R07.9 Chest pain, unspecified Nikki Marcano PA Plan of Treatment Future Appointment(s):02/09/2020 9:40 am - Kings Porter MD at Cardiology Vajnn[facility]2412/05/2019 - Mark Anthony Nelson MDH04.123 Dry eye syndrome of bilateral lacrimal glandsComments:- please consider:- warm compresses- artificial tears both eyes- consider ointment at night lubricating ointment include lacri-lube, systane, refresh pm- refractory to restasis- placed punctal occlusion, plugs RLL , LLLFollow up:please call with ? or concerns Functional Status Functional Condition Comment Date Status Independent with all ADL's Active Mental Status Description No Information Available Referrals Refer to Dr Reason for Referral Status Appt Date Kings Porter MD 29M palpitation, HTN, using testosterone Closed 10/27/2019 [address] [place] [address] [phone]
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
== END 2019-12-11 17:32 | disposition home or self-care (01) ==
LOC: UCCORT 14:57
DX: S39.012A Strain of muscle, fascia and tendon of lower back, initial encounter (principal); M54.2 Cervicalgia; I10 Essential (primary) hypertension; Z88.5 Allergy status to narcotic agent; Z88.0 Allergy status to penicillin; Z91.09 Other allergy status, other than to drugs and biological substances; Z79.899 Other long term (current) drug therapy; V40.9XXA Unspecified car occupant injured in collision with pedestrian or animal in traffic accident, initial encounter; Y92.9 Unspecified place or not applicable
CPT/HCPCS: 99213; G0463